=== PATIENT | female | born 1960 | race Caucasian/White ===

== ENCOUNTER 2019-08-14 12:25 | Emergency (ER) | payer OTHER ==
[~2019-08-14] VITALS: Ht 168.9 cm; Wt 99.3 kg
[2019-08-14 12:38] VITALS: BP 125/71
--- NOTE | 2019-08-14 12:50 | NUR ---
PT AMBULATED TO BED 09.
--- NOTE | 2019-08-14 12:57 | NUR ---
SHOWED PT BRISTOL STOOL CHART. PT STATES SHE THINKS HER STOOL IS TYPE 6.
[2019-08-14] MEDS ORDERED: metroNIDAZOLE 250 MG TAB PO ONE (13:40)
--- NOTE | 2019-08-14 13:46 | NUR ---
PT BIB SELF, PT STATES SHE WANTS TO BE TESTED FOR C. DIFF. PT STATES HER SON WAS ADMITTED HERE LAST NIGHT FOR POSSIBLE C. DIFF AND THEY LIVE IN THE SAME HOUSE. PT DENIES ANY DIARRHEA, FEVERS, OR ABD PAIN. PT STATES SHE HAS DM THIS AM THAT WAS FORMED AND NON LIQUID. PT AWAKE AND ALERT SITTING IN BED.
--- NOTE | 2019-08-14 13:55 | NUR ---
PT AMBULATORY TO BATHROOM TO ATTEMPT TO PROVIDE STOOL SAMPLE.
--- NOTE | 2019-08-14 14:14 | NUR ---
STOOL SAMPLE COLLECTED AND SENT TO LAB
[2019-08-14 14:42] VITALS: BP 125/71
--- NOTE | 2019-08-14 14:42 | NUR ---
Patient discharged with v/s stable. Written and verbal after care instructions given and explained. Patient alert, oriented and verbalized understanding of instructions. Ambulatory with steady gait. All questions addressed prior to discharge. ID band removed. Patient advised to follow up with PMD.
== END 2019-08-14 14:42 | disposition home or self-care (01) ==
LOC: MED 12:25
DX: F41.9 Anxiety disorder, unspecified (principal); Z20.818 Contact with and (suspected) exposure to other bacterial communicable diseases
CPT/HCPCS: 82272; 87045; 87070; 89055; 99283